=== PATIENT | female | born 1965 | race Caucasian/White ===

== ENCOUNTER 2016-07-22 08:48 | Inpatient (IN) | payer BC ==
[~2016-07-22] VITALS: Ht 157.5 cm; Wt 68.4 kg
[~2016-07-22 08:48] MED LIST: METO1TAB19 PO; OMEP20CA16 PO
[2016-07-22] MEDS ORDERED: SOD CHLORIDE 0.9% 1,000 ML IV STA ×2 (09:09→12:31)
[2016-07-22] MEDS ORDERED: ONDANSETRON 4 MG INJ IV STA ×3 (09:09→13:45)
[2016-07-22] MEDS ORDERED: morphine 4 MG/ML VIAL IV STA (09:09)
[2016-07-22] MEDS ORDERED: TOPI25CA7 PO (09:10)
[2016-07-22] MEDS ORDERED: METO-429 PO (09:10)
[2016-07-22] MEDS ORDERED: BUTA1CAP38 PO (09:11)
[2016-07-22 09:57] LABS: BASOPHIL # 0.1 10^3/ul (0.0-0.1); BASOPHILS % 0.7 % (0.0-2.0); EOSINOPHILS # 0.2 10^3/ul (0.0-0.5); EOSINOPHILS % 2.6 % (0.0-7.0); HEMATOCRIT 38.5 % (37.0-47.0); HEMOGLOBIN 12.9 g/dl (12.0-16.0); LYMPHOCYTES # 2.5 10^3/ul (0.8-2.9); MEAN CORPUSCULAR HEMOGLOBIN 29.3 pg (29.0-33.0); MEAN CORPUSCULAR HGB CONC 33.7 g/dl (32.0-37.0); MEAN CORPUSCULAR VOLUME 86.9 fl (82.0-101.0); MEAN PLATELET VOLUME 7.5 fl (7.4-10.4); MONOCYTE # 0.4 10^3/ul (0.3-0.9); MONOCYTES % 4.6 % (0.0-11.0); NEUTROPHIL # 4.7 10^3/ul (1.6-7.5); NEUTROPHILS % 60.1 % (39.0-77.0); PLATELET COUNT 287 10^3/UL (140-440); RED BLOOD COUNT 4.43 10^6/ul (4.20-5.40); RED CELL DISTRIBUTION WIDTH 13.9 % (11.5-14.5); UNCORRECTED WBC 7.8 10^3/ul (4.8-10.8); WHITE BLOOD COUNT 7.8 10^3/ul (4.8-10.8)
[2016-07-22 10:01] LABS: CONDITION 1
[2016-07-22 10:20] LABS: INR 0.93; PROTIME 12.5 Sec (12.2-14.2)
[2016-07-22 10:21] LABS: PARTIAL THROMBOPLASTIN TIME 26.4 Sec (25.0-35.0)
[2016-07-22 10:29] LABS: ALBUMIN 4.5 g/dl (3.3-4.9)
[2016-07-22 10:30] LABS: POTASSIUM 4.4 mmol/L (3.5-5.1)
[2016-07-22 10:31] LABS: CREATININE 0.7 mg/dl (0.44-1.00)
[2016-07-22 10:32] LABS: ALBUMIN/GLOBULIN RATIO 1.28; BILIRUBIN,INDIRECT 0.5 mg/dl (0-1.1); BILIRUBIN,TOTAL 0.5 mg/dl (0.2-1.3); CALCIUM 9.8 mg/dl (8.4-10.2)
[2016-07-22] MEDS ORDERED: SOD CHLORIDE 0.9% 100 ML ONE (10:55)
[2016-07-22] MEDS ORDERED: IOHEXOL 100 ML ONE (10:55)
[2016-07-22] MEDS ORDERED: HYDROmorphONE 1 MG/ML SYG IV STA (11:20)
--- NOTE | 2016-07-22 11:22 | RADRPT ---
PROCEDURE: CT brain without contrast CLINICAL INDICATION: Severe headaches TECHNIQUE: CT of the brain without contrast was performed on a multidetector CT scanner, with multi planar reformats. One or more of the following dose reduction techniques were used: Automated expos ure control, adjustment in mA and / or kV according to patient size, use of iterative reconstructive technique. CTDIvol = 44 mGy; DLP = 720 mGy-cm. COMPARISON: None available FINDINGS: No acute intracranial hemorrhage is identified. There is a focal area of prominence of the extra-axial space in the left middle cranial fossa arnoldo medially measuring up to approximately 3.3 cm, similar in density to CSF likely reflecting an arachn oid cyst. No significant mass effect or midline shift is identified Ventricles and sulci are within normal limits for size and configuration. The density of the brain is within normal limits. Post-white differentiation is preserved. Osseous structures are unremarkable. Mastoid air cells and imaged paranasal sinuses grossly clear. IMPRESSION: 1. No evidence of acute intracranial pathology. 2. Likely arachnoid cyst at the left middle cranial fossa. RPTAT: VV .Hussein Hernandez MD, MD Date Time Electronically viewed and signed by .Hussein Hernandez MD, on 07/22/2016 11:21 .O/
--- NOTE | 2016-07-22 11:31 | RADRPT ---
PROCEDURE: CT angiogram of the brain with contrast. CLINICAL INDICATION: severe headache TECHNIQUE: CT scan of the brain without and with contrast was performed on a multidetector high-re solution CT scan. The patient was scanned following the uncomplicated intravenous administration of 99 ml Omnipaque- 350. Coronal and sagittal reformatted images were obtained from the axial source i mages. Standard CT angiogram of the brain with contrast protocols were performed. The total exam CTDI equals 48.2 mGy and the total exam DLP equals 637.53 mGy-cm. One or more of the following dose reduction techniques were used: - Automated exposure control. - Adjustment of the mA and/or kV according to patient size. Use of iterative reconstruction technique. COMPARISON: CT scan of the head without contrast earlier same day. FINDINGS: The ventricular system and peripheral CSF spaces are unremarkable. No evidence of intracranial mass es hemorrhages or midline shift. The distal left vertebral artery is dominant at the distal vertebr al arteries otherwise unremarkable. The basilar artery is unremarkable. The right left and distal internal carotid arteries are unremarkable. The right left anterior, middle and posterior cerebral arteries are unremarkable. There is no hemodynamically significant stenosis, NASCET criteria. No e vidence of aneurysm dissection or thrombosis. The cortical cerebral arteries are unremarkable. 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 The remainder of the dural venous sinuses are unremarkable without evidence of thrombosis. New IMPRESSION: 1. No evidence of hemodynamically significant stenosis, NASCET criteria. 2. No evidence of aneurysm dissection or thrombosis. RPTAT:AAJJ Physician Joseph Date Time Electronically viewed and signed by Physician Joseph on 07/22/2016 11:31 BM/
[2016-07-22] MEDS ORDERED: KETOROLAC 30 MG INJ IV STA (11:49)
--- NOTE | 2016-07-22 12:02 | ERD ---
ER Documentation Chief Complaint Date/Time DATE: 07/22/16 TIME: 11:54 Chief Complaint COUGHING EPISODE THIS AM THEN SUDDEN ONSET SEVERE HEADACHE. NO NEURO DEF HPI This is a 50-year-old female with a known history of migraines that presents to the emergency department complaining of a sudden onset of a severe bandlike headache that occurred roughly an hour prior to arrival. The patient indicates the last time she had a headache like this was one year ago. She been placed on Fioricet and topiramate 25 mg which she took prior to arrival but indicated this did not improve her headache. She has been having difficulty sleeping over the past little while which has exacerbated her headaches in the past. She denies any neck pain. She has had no fevers or shaking or chills. She stated this is not the worst headache of her life. She denies any weakness of her upper or lower extremities. The patient stated she felt very nauseous but did not experience any hemoptysis hematemesis or melanotic stools. She did indicate that when the headache occurs she had developed a sudden nonproductive cough that resolved. Patient denies any night sweats or weight loss ROS All systems reviewed and are negative except as per history of present illness. Medications Home Meds Active Scripts Docusate Sodium* (Colace*) 100 Mg Capsule, 100 MG PO DAILY Y for CONSTIPATION, # 30 CAP Prov:GRIFFIN DANIELS 07/22/16 Hydrocodone/Acetaminophen ([place] 5-325 Tablet) 1 Each Tablet, 1 TAB PO Q6H Y for PAIN, #20 TAB Prov:GRIFFIN DANIELS 07/22/16 Naproxen* (Naprosyn*) 500 Mg Tablet, 500 MG PO BID Y for PAIN AND/OR INFLAMMATION, #30 TAB Prov:GRIFFIN DANIELS 07/22/16 Reported Medications Dxurzroacj-Juckwznfzhuil-Kfiealna* (Fioricet*) 50-300-40 Mg Capsule, 1 CAP PO Q6H Y for PAIN, CAP 07/22/16 Topiramate* (Trokendi XR*) 25 Mg Cap.er.24h, 25 MG PO DAILY, CAP 07/22/16 Metoprolol Tartrate* (Lopressor*) 50 Mg Tab, 50 MG PO BID, #60 TAB 07/22/16 Discontinued Reported Medications Omeprazole* (Omeprazole*) 20 Mg Capsule.dr, 20 MG PO DAILY, CAP 09/15/14 Metoprol/Hydrochlorothiazide (Lopressor HCT) 50-25 Mg Tab, 1 TAB PO DAILY, TAB 09/15/14 Allergies Allergies: Coded Allergies: Rizatriptan Benzoate (Verified Allergy, Mild, increased heart rate and numbiing of hand, 07/22/16) erythromycin base (Verified Allergy, Mild, increased heart rate and numbing of hand, 07/22/16) PMhx/Soc History of Surgery: Yes (HYSTERECTOMY 2005,LEFT EYE SURGERY, C SECTION X3) Anesthesia Reaction: No Hx Neurological Disorder: No Hx Respiratory Disorders: No Hx Cardiac Disorders: Yes (SINUS TACH) Hx Psychiatric Problems: No Hx Miscellaneous Medical Probl: No Hx Alcohol Use: Yes Hx Substance Use: No Hx Tobacco Use: No Smoking Status: Never smoker Physical Exam Vitals Vital Signs Date Time Temp Pulse Resp B/P Pulse Ox O2 Delivery O2 Flow Rate FiO2 07/22/16 11:26 96 18 126/88 98 Room Air 07/22/16 08:54 98.3 105 22 149/83 99 Physical Exam Constitutional:Well-developed. Well-nourished. Patient crying requesting the lights off due to photophobia appear to be in a significant amount discomfort secondary to pain HEENT:Normocephalic. Atraumatic.Pupils were equal round reactive to light. Moist mucous membranes.No tonsillar exudates. Endoscopy exam showed sharp optic disc bilaterally venous pulsations were present Neck: No nuchal rigidity. No lymphadenopathy. No posterior cervical spine tenderness or step-offs. Respiratory: Not using accessory muscles of respiration.Lungs were clear to auscultation bilaterally. No rhonchi. No rales. No wheezing. Cardiovascular: Regular rate regular rhythm.No murmurs. No rubs were appreciated.S1, S2 normal. Distal pulses are palpable 2+ bilaterally. GI: Abdomen was soft. Nontender. Non Distended. No pulsatile abdominal masses or bruits. No rebound. No guarding. Bowel sounds were present and normal. Muscle skeletal: Full range of motion of both the upper and lower extremities bilaterally.Normal muscle tone.No assymetrical calf tenderness or swelling. Skin: No petechia, no purpura. No lesions on the palms or the soles of the feet. No maculopapular rash. NEURO: Patient was alert, awake, orientated x3.No facial droop. Gait observed and normal with no ataxia.Speech had regular rate and rhythm. No focal neurological deficits. Result Diagram: 07/22/1620 07/22/16 0930 Results 24 hrs Laboratory Tests Test 07/22/16 09:20 07/22/16 09:30 Basophils # 0.110^3/ul Basophils % 0.7% Eosinophils # 0.210^3/ul Eosinophils % 2.6% Hematocrit 38.5% Hemoglobin 12.9g/dl Lymphocytes # 2.510^3/ul Lymphocytes % 32.0% Mean Corpuscular Hemoglobin 29.3pg Mean Corpuscular Hemoglobin Concent 33.7g/dl Mean Corpuscular Volume 86.9fl Mean Platelet Volume 7.5fl Monocytes # 0.410^3/ul Monocytes % 4.6% Neutrophils # 4.710^3/ul Neutrophils % 60.1% Nucleated Red Blood Cells # 0.010^3/ul Nucleated Red Blood Cells % 0.0/100WBC Platelet Count 49594^3/UL Red Blood Count 4.4310^6/ul Red Cell Distribution Width 13.9% White Blood Count 7.810^3/ul Activated Partial Thromboplast Time 26.4Sec Alanine Aminotransferase (ALT/SGPT) 41IU/L Albumin 4.5g/dl Albumin/Globulin Ratio 1.28 Alkaline Phosphatase 98IU/L Anion Gap 19 Aspartate Amino Transf (AST/SGOT) 36IU/L Blood Urea Nitrogen 13mg/dl Calcium Level 9.8mg/dl Carbon Dioxide Level 26mmol/L Chloride Level 102mmol/L Creatinine 0.70mg/dl Direct Bilirubin 0.00mg/dl Globulin 3.50g/dl Glucose Level 147mg/dl INR International Normalized Ratio 0.93 Indirect Bilirubin 0.5mg/dl Potassium Level 4.4mmol/L Prothrombin Time 12.5Sec Prothrombin Time Ratio 1.0 Sodium Level 143mmol/L Total Bilirubin 0.5mg/dl Total Protein 8.0g/dl Current Medications Medications (Trade) Dose Ordered Sig/Christine Route PRN Reason Start Time Stop Time Status Last Admin Dose Admin Sodium Chloride (NS) 1,000 ml @ 1,000 mls/hr Q1H STAT IV 07/22/16 09:09 07/22/16 10:08 DC 07/22/16 09:33 Morphine Sulfate (morphine) 4 mg ONCE STAT IV 07/22/16 09:09 07/22/16 09:11 DC 07/22/16 09:33 Ondansetron HCl (Zofran Inj) 4 mg ONCE STAT IV 07/22/16 09:09 07/22/16 09:11 DC 07/22/16 09:33 IV Flush 10 ml 10 ml STK-MED ONCE .ROUTE 07/22/16 10:55 07/22/16 10:56 DC 07/22/16 11:16 Sodium Chloride 100 ml @ ud STK-MED ONCE .ROUTE 07/22/16 10:55 07/22/16 10:56 DC 07/22/16 11:16 Iohexol (Omnipaque) 100 ml @ ud STK-MED ONCE .ROUTE 07/22/16 10:55 07/22/16 10:56 DC 07/22/16 11:17 Hydromorphone HCl (Dilaudid) 1 mg ONCE STAT IV 07/22/16 11:20 07/22/16 11:21 DC 07/22/16 11:30 Ondansetron HCl (Zofran Inj) 4 mg ONCE STAT IV 07/22/16 11:20 07/22/16 11:21 DC 07/22/16 11:29 Ketorolac Tromethamine 30 mg 30 mg ONCE STAT IV 07/22/16 11:49 07/22/16 11:51 DC 07/22/16 12:47 Sodium Chloride (NS) 1,000 ml @ 1,000 mls/hr Q1H STAT IV 07/22/16 12:31 07/22/16 13:30 DC 07/22/16 12:46 Procedures/MDM The patient presented to the emergency department with an acute single headache that presented within hours of onset my differential diagnosis included but was not limited to meningitis, SAH, intracerebral hemorrhage, hypertensive encephalopathy, cranial artery dissection, cerebral venous sinus thrombosis, traumatic, acute sinusitis. The patient has no ocular symptoms to suggest temporal neuritis, acute narrow-angle glaucoma or pituitary apoplexy. The patient did not appear to have a toxic or metabolic etiology such as fever, hypoglycemia, high-altitude disease or carbon monoxide poisoning. This was not the patients worse headache of their life. The patient had a complete neurologic and fundoscopic exam performed by myself that was normal with no focal neurological deficits or retinal hemorrhage. The patient stated this headache was not severe or distinct from other headaches and the history with the physical exam findings did not likely suggest SAH. Therefore, I did not feel it was clinically necessary to perform a lumbar puncture and CSF analysis. I did obtain a CT scan of the patient's head and CT angiogram which showed no evidence of subarachnoid hemorrhage, mass-effect or cerebral aneurysm. Observation Note: Time: 5 hours Family Hx: No Hypertension Evaluation: Multiple exams showed improving symptoms and no evidence of focal neurological deficits and her headache had improved. There is no electrolyte abnormalities. The patient received IV Toradol Dilaudid and morphine during her observation stay with complete resolution of her headache. At 1:48 PM just as the patient was being discharged in the IV have been removed the patient started states that the headache had returned. She became very tearful and states she did not feel comfortable being discharged home. Therefore at this time IV was reestablished by nursing staff. She was given a liter bolus of 0.9 normal saline, IV Ativan and Zofran. The patient will be admitted to the hospitalist in serious condition for observation Departure Diagnosis: Primary Impression: Migraine headache Migraine type: without aura Status migrainosus presence: without status migrainosus Intractability: intractable Qualified Code: G43.019 - Intractable migraine without aura and without status migrainosus Condition: Serious GRIFFIN DANIELS Jul 22, 2016 12:02
[2016-07-22] MEDS ORDERED: NAPR-260 PO (12:13)
[2016-07-22] MEDS ORDERED: HYDR-906 PO (12:13)
[2016-07-22] MEDS ORDERED: DOCU-144 PO (12:13)
[2016-07-22] MEDS ORDERED: LORAZEPAM 2 MG INJ IV ONE (14:00)
[2016-07-22] MEDS ORDERED: ACETAMINOPHEN 325 MG TAB PO PRN ×2 (14:30→15:30)
[2016-07-22] MEDS ORDERED: ONDANSETRON 4 MG INJ IV PRN ×2 (14:30→15:30)
[2016-07-22] MEDS ORDERED: MAGNESIUM HYDROXIDE 30ML CUP PO PRN (15:30)
[2016-07-22] MEDS ORDERED: HYDROCODONE/APAP (5/325) TAB PO PRN (15:30)
[2016-07-22] MEDS ORDERED: BISACODYL (EC) 5 MG TAB PO PRN (15:30)
[2016-07-22] MEDS ORDERED: DOCUSATE SODIUM 100 MG CAP PO PRN (15:30)
[2016-07-22] MEDS ORDERED: NACL 0.9% 3 ML SYG IV SCH (15:30)
[2016-07-22 19:00] VITALS: TEMP 98.3
[2016-07-22] MEDS: HYDROmorphONE 1 MG/ML SYG IV PRN ×2 (19:18→22:59)
--- NOTE | 2016-07-22 19:53 | HP ---
DATE OF ADMISSION: 07/22/2016 TIME OF EVALUATION: 1500 hours. REASON FOR ADMISSION: Headache. CONSULTATION: Dr. Siomara Morrell, Neurologist. HISTORY OF PRESENT ILLNESS: This is a 50-year-old male with past medical history of migraine headache, essential hypertension and sinus tachycardia, who came to the emergency room with chief complaint of sudden onset of severe band-like headache that happened at around 7:35 a.m. on 2016. The patient verbalized that she has been having frequent attacks of migraine headaches recently. The patient also verbalized that she was having a flu last week. The patient verbalized that she was having flu-like symptoms since 07/18/2016. The patient was taking [id number] medications with improvement in the patient's symptoms. The patient denied any photophobia. The patient denied any speech disturbances. The patient denied any focal weakness. The patient denied any fevers, shaking or chills. The patient was seen in the emergency room. The initial plan was to discharge the patient home. Nevertheless, the patient started having severe headache that was intolerable. The patient verbalized that she has been trying to see a neurologist as outpatient, however, because of insurance reasons, she was unable to see a neurologist. The patient also had a right breast lump that the patient is aware of. As per the patient, she was told to follow up as outpatient, however, as per the patient, she has not had any followup regarding this. In the emergency room, the patient underwent a brain CT scan that was negative for any acute intracranial pathology. The patient also underwent a head CTA that showed no evidence of any hemodynamically significant stenosis of the major arteries. The patient was treated with IV analgesics and IV fluids along with IV antiemetics in the emergency room. PAST MEDICAL HISTORY: Migraine headache, essential hypertension, sinus tachycardia, right breast lump. PAST SURGICAL HISTORY: Hysterectomy, left eye surgery, x3. HOME MEDICATIONS: 1. Lopressor 50 mg p.o. b.i.d. 2. Fioricet 1 capsule p.o. q.6h. p.r.n. headache. 3. [place] 5/325 one tablet p.o. q.6h. p.r.n. pain. 4. Naproxen 500 mg p.o. b.i.d. p.r.n. pain. 5. Topiramate 25 mg p.o. daily. 6. Colace 100 mg p.o. daily p.r.n. constipation. ALLERGIES: ERYTHROMYCIN, RIZATRIPTAN. SOCIAL HISTORY: The patient lives at home with her family. 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 Denies any use of tobacco, alcohol or illicit drugs. REVIEW OF SYSTEMS: A 14-point review of systems were made and the review of systems were negative other than what is mentioned in history of present illness. PHYSICAL EXAMINATION: VITAL SIGNS: Temperature 98.3, pulse rate 89, respiratory rate 18, blood pressure 115/67, oxygen saturation 100% on room air. GENERAL: Well-built, well-nourished female lying in bed in no apparent distress. HEENT: Head normocephalic and atraumatic. Eyes: Anicteric sclerae. Conjunctivae clear. ENT: Nasal septum is midline. Oral mucosa is dry. NECK: Supple. No JVD noticed. RESPIRATORY: Bilaterally clear to auscultation. No adventitious breath sounds heard. No use of accessory muscles of respiration. CARDIOVASCULAR: Regular rate and rhythm. Sinus tachycardia. No obvious murmurs heard. ABDOMEN: Abdomen soft, nontender and nondistended. Bowel sounds positive in all 4 quadrants. GENITOURINARY: Deferred. EXTREMITIES: No cyanosis, no clubbing, no edema. Peripheral pulses palpable. NEUROLOGIC: The patient is awake, alert and oriented. Cranial nerves are grossly intact. LABORATORY AND DIAGNOSTIC DATA: WBC 7.8, hemoglobin 12.9, hematocrit 30.5, platelet count 287. Sodium 142, potassium 4.4, chloride 100, carbon dioxide 26 , anion gap 19, BUN 13, creatinine 0.70, glucose 147, calcium 9.8, total bilirubin 0.5, AST 36, ALT 40, PT 12.5, INR 0.93, PTT 26.43. Brain CT: No acute intracranial pathology. Head CTA: No evidence of hemodynamically significant stenosis. IMPRESSION: This history a 50-year-old female with past medical history of essential hypertension and migraine headache, who came to the emergency room with intractable headache, not well controlled with medical therapy in the ER. She will be admitted here for further treatment and evaluation. ASSESSMENT AND PLAN: 1. Headache, most probably secondary to underlying migraine. The patient will be maintained on p.r.n. analgesics. The patient's topiramate will be resumed. THE PATIENT IS ALLERGIC TO ANY TRIPTANS. Antihypertensives will be ordered on this patient. Neurology consult will be obtained. 2. Essential hypertension. The patient's home antihypertensives will be resumed. The patient will also be started on p.r.n. antihypertensives for any systolic blood pressure readings greater than 160 mmHg. 3. Sinus tachycardia. The patient is on beta blockers. The patient follows up with Dr. Sosa for the same. 4. Right breast lump. As mentioned in HPI, the patient has not followed up regarding this. Will obtain a bilateral breast ultrasound to further evaluate this. Plan. The patient will be admitted to inpatient setting. The patient will be started on a regular diet. The patient will be a full code. She will be started on DVT prophylaxis and gastrointestinal prophylaxis. The rest of the patient's management will be based on the clinical course, the results of diagnostic studies, and inputs from consultants. Based on the patient's clinical presentation, she most probably requires at least 1 midnight's stay for further management and evaluation of her clinical presentation. The case and management of this patient was fully discussed with Dr. Jacobs. Approximately 50 minutes was spent on the history and physical on this patient. COLLEEN JACOBS MD AM/DIANA Conf#: [id number] DID#: [id number] CC: SIOMARA MORRELL MD;*EndCC* MTDD
[2016-07-22 21:11] VITALS: BP 136/83; RESP 16
[2016-07-22 22:02] VITALS: Ht 157.5 cm; Wt 68.4 kg
[2016-07-22] MEDS: METOPROLOL 50 MG TAB PO SCH (22:14)
[2016-07-22] MEDS: FAMOTIDINE 20 MG TAB PO SCH (22:14)
[2016-07-22] MEDS: ACET/BUTAL/CAFF TAB PO PRN (23:17)
[2016-07-23 06:18] LABS: BASOPHILS % 0.5 % (0.0-2.0); EOSINOPHILS # 0.2 10^3/ul (0.0-0.5); EOSINOPHILS % 2.4 % (0.0-7.0); HEMATOCRIT 33.6 % (37.0-47.0); HEMOGLOBIN 11.2 g/dl (12.0-16.0); LYMPHOCYTES # 3.9 10^3/ul (0.8-2.9); LYMPHOCYTES % 40.3 % (15.0-51.0); MEAN CORPUSCULAR HEMOGLOBIN 29.6 pg (29.0-33.0); MEAN CORPUSCULAR HGB CONC 33.4 g/dl (32.0-37.0); MEAN CORPUSCULAR VOLUME 88.6 fl (82.0-101.0); MEAN PLATELET VOLUME 7.2 fl (7.4-10.4); MONOCYTE # 0.6 10^3/ul (0.3-0.9); NEUTROPHIL # 4.9 10^3/ul (1.6-7.5); NEUTROPHILS % 50.8 % (39.0-77.0); PLATELET COUNT 263 10^3/UL (140-440); RED BLOOD COUNT 3.79 10^6/ul (4.20-5.40); RED CELL DISTRIBUTION WIDTH 14.1 % (11.5-14.5); UNCORRECTED WBC 9.7 10^3/ul (4.8-10.8); WHITE BLOOD COUNT 9.7 10^3/ul (4.8-10.8)
[2016-07-23 06:20] LABS: CONDITION 1
[2016-07-23 06:48] LABS: CHOL/HDL RATIO 4.6 RATIO; MAGNESIUM 2.2 mg/dl (1.7-2.5); PHOSPHORUS 3.5 mg/dl (2.5-4.9)
[2016-07-23 06:49] LABS: ALBUMIN 3.7 g/dl (3.3-4.9)
[2016-07-23 06:52] LABS: ALBUMIN/GLOBULIN RATIO 1.19; BILIRUBIN,INDIRECT 0.3 mg/dl (0-1.1); BILIRUBIN,TOTAL 0.3 mg/dl (0.2-1.3); CREATININE 0.82 mg/dl (0.44-1.00); TOTAL PROTEIN 6.8 g/dl (6.1-8.1)
[2016-07-23 06:53] LABS: CALCIUM 9.3 mg/dl (8.4-10.2)
[2016-07-23 07:18] LABS: THYROID STIMULATING HORMONE 0.666 MIU/L (0.465-4.680)
[2016-07-23 08:00] VITALS: BP 110/71; PULSE 90; RESP 18
[2016-07-23] MEDS: FAMOTIDINE 20 MG TAB PO SCH (08:22)
[2016-07-23] MEDS: ACET/BUTAL/CAFF TAB PO PRN (08:22)
[2016-07-23] MEDS: METOPROLOL 50 MG TAB PO SCH (08:23)
[2016-07-23] MEDS ORDERED: ENOXAPARIN 40 MG/0.4 ML SYG SC SCH (09:00)
[2016-07-23] MEDS ORDERED: TOPIRAMATE 25 MG PO SCH (09:00)
[2016-07-23] MEDS ORDERED: [UNRECOGNIZED DRUG - OTHER] XX SCH (10:30)
--- NOTE | 2016-07-23 11:08 | CONS ---
Date/Time of Note Date/Time of Note DATE: 07/23/16 TIME: 11:01 Assessment/Plan Assessment/Plan Chief Complaint/Hosp Course 50 year old female with history of migraine headaches over 15 years recently initiated on Topamax low dose 25 mg qhs, with flu-like illness for past few days , stopped taking Topamax and Fioricet, suspect rebound headaches. -reinitiate Topamax, increase dose to 50 mg qhs if tolerating well with no side effects can increase in one week to 75 mg qhs -advised to take Fioricet prn only when headaches are severe as withdrawal can cause rebound headaches -zofran prn, may discharge with prn sublingual Zofran 4 mg q6h prn for nausea -outpatient neurology follow up advised, given information to contact Dr. Rubin 's office to schedule an outpatient visit Problems: Consultation Date/Type/Reason Admit Date/Time Jul 22, 2016 at 14:27 Date of Consultation: Jul 23, 2016 Type of Consultation: Neurology Reason for Consultation migraine headaches Referring Provider: COLLEEN COLON NP Hx of Present Illness 50 year old female with history of migraine headaches for the past 15 years, essential hypertension, recent flu illness presenting with severe headaches described as band-like sensation. She is currently managed on Topamax 25 mg qhs and Fioricet q6h, has never been evaluated by a neurologist as outpatient for management of her headaches. She was recently started on Topamax 3 weeks ago by primary care physician, no reported side effects and was also taking Fioricet daily for management of headcahes. Three days ago she developed flu-like symptoms and stopped taking both of her medications. In the ER she received, morphine which dulled the pain and dilaudid with improved her symptoms and made her feel very lethargic. At this time she denies any active pain, feeling at her baseline. No photophobia, phonophobia, neck stiffness described, no fevers. Head CT done in ER, no acute intracranial abnormalities, left middle cranial fossa arachnoid cyst. negative ROS Past Medical History hypertension migraine headaches Social History Smoking Status: Never smoker Exam/Review of Systems Vital Signs Vitals Vital Signs Date Time Temp Pulse Resp B/P Pulse Ox O2 Delivery O2 Flow Rate FiO2 07/23/16 08:00 99.0 90 18 110/71 98 07/22/16 20:32 Room Air Intake and Output 07/22/16 07/22/16 07/23/16 15:00 23:00 07:00 Intake Total 720 ml Balance 720 ml Exam Constitutional: alert, oriented, well developed Psych: nl mood/affect, no complaints Head: atraumatic, normocephalic Eyes: EOMI, nl conjunctiva Neurological: DOPE SPRAYER II-XII intact, DTR's symmetric, nl mental status, nl speech, nl strength Results Result Diagram: 07/23/16 0600 07/23/16 0600 Results 24 hrs Laboratory Tests Test 07/23/16 06:00 Alanine Aminotransferase (ALT/SGPT) 39 Albumin 3.7 Albumin/Globulin Ratio 1.19 Alkaline Phosphatase 74 Anion Gap 14 Aspartate Amino Transf (AST/SGOT) 27 Basophils # 0.0 Basophils % 0.5 Blood Morphology Comment Blood Urea Nitrogen 12 Calcium Level 9.3 Carbon Dioxide Level 27 Chloride Level 107 Cholesterol Level 161 Cholesterol/HDL Ratio 4.6 Creatinine 0.82 Direct Bilirubin 0.00 Eosinophils # 0.2 Eosinophils % 2.4 Erythrocyte Sedimentation Rate 15 Free Thyroxine 0.98 Globulin 3.10 Glucose Level 105 # HDL Cholesterol 35 L Hematocrit 33.6 L Hemoglobin 11.2 L Hemoglobin A1c 6.8 H Indirect Bilirubin 0.3 LDL Cholesterol, Calculated 97 Lymphocytes # 3.9 H Lymphocytes % 40.3 Magnesium Level 2.2 Mean Corpuscular Hemoglobin 29.6 Mean Corpuscular Hemoglobin Concent 33.4 Mean Corpuscular Volume 88.6 Mean Platelet Volume 7.2 L Monocytes # 0.6 Monocytes % 6.0 Neutrophils # 4.9 Neutrophils % 50.8 Nucleated Red Blood Cells # 0.0 Nucleated Red Blood Cells % 0.0 Phosphorus Level 3.5 Platelet Count 263 Potassium Level 4.0 Red Blood Count 3.79 L Red Cell Distribution Width 14.1 Sodium Level 144 Thyroid Stimulating Hormone (TSH) 0.666 Total Bilirubin 0.3 Total Protein 6.8 # Triglycerides Level 147 White Blood Count 9.7 # Medications Medications Current Medications Ondansetron HCl (Zofran Inj) 4 mg Q6H PRN IV NAUSEA AND/OR VOMITING Last administered on 07/22/16t 21:33; Admin Dose 4 MG; Start 07/22/16 at 15:30 Acetaminophen (Tylenol Tab) 650 mg Q6H PRN PO PAIN LEVEL 1-3 OR FEVER; Start at 15:30 Acetaminophen/ Hydrocodone Bitart (Sisters (5/325)) 1 tab Q6H PRN PO MODERATE PAIN LEVEL 4-6; Start 07/22/16 at 15:30 Hydromorphone HCl (Dilaudid) 0.5 mg Q4H PRN IV SEVERE PAIN LEVEL 7-10 Last administered on 07/22/16 22:59; Admin Dose 0.5 MG; Start 07/22/16 at 15:30 Magnesium Hydroxide (Milk Of Mag) 30 ml DAILY PRN PO CONSTIPATION; Start at 15:30 Bisacodyl (Dulcolax) 5 mg DAILY PRN PO CONSTIPATION Last administered on 23:17; Admin Dose 5 MG; Start 07/22/16 at 15:30 Famotidine (Pepcid) 20 mg Q12 PO Last administered on 07/23/16 08:22; Admin Dose 20 MG; Start 07/22/16 at 21:00 Enoxaparin Sodium (Lovenox) 40 mg DAILY SC Last administered on 07/23/16 08:26 ; Admin Dose 40 MG; Start 07/23/16 at 09:00 Acetaminophen/ Butalbital/ Caffeine (Fioricet) 1 tab Q6H PRN PO PAIN Last administered on 07/23/16 08:22; Admin Dose 1 TAB; Start 07/22/16 at 15:30 Docusate Sodium (Colace) 100 mg DAILY PRN PO CONSTIPATION; Start 07/22/16 at 15 :30 Metoprolol Tartrate (Lopressor) 50 mg BID PO Last administered on 07/23/16 08: 23; Admin Dose 50 MG; Start 07/22/16 at 21:00 Miscellaneous Information 25 mg DAILY PO ; Start 07/23/16 at 09:00; Status UNV Miscellaneous Information (*Order Clarification Bulletin) Topiramate* (Trokendi XR*) 25 MG, ... Q8H XX ; Start 07/23/16 at 10:30 DANNY MORRELL MD Jul 23, 2016 11:08
--- NOTE | 2016-07-23 12:50 | PDOCDIS ---
Discharge Instructions DIAGNOSIS Discharge Diagnosis: Migraine. Type II DM [newly diagnosed] CONDITION Patient Condition: Stable HOME CARE INSTRUCTIONS: Special Diet: Carbohydrate controlled FOLLOW UP/APPOINTMENTS Appointments Kevin Rivas MD Specialty: Internal Medicine Office Address: [address] [place], [place] [id number] Office OTHER ORDERS: Other Orders: 1. Take a carbohydrate controlled diet. 2. Take medications as per prescription. 3. Follow-up with your primary care physician in 2 weeks. If you do not have a primary care physician, please call Dr. Kevin Rivas's office. 4. Resume activities as tolerated. COLLEEN COLON NP Jul 23, 2016 12:50
[2016-07-23] MEDS ORDERED: TOPI25CA2 PO (13:02)
[2016-07-23] MEDS ORDERED: METF500T4 PO (13:02)
--- NOTE | 2016-07-23 13:07 | RADRPT ---
PROCEDURE: Bilateral breast ultrasound. CLINICAL INDICATION: Right breast lumps TECHNIQUE: Bilateral whole breast, 4 quadrant and retroareolar, and axillary sonography was perfor med. COMPARISON: None FINDINGS: No solid or suspicious masses. No areas of architectural distortion. No malignant adenopathy. No dominant cysts are present. IMPRESSION: No sonographic findings of malignancy in the region of the palpable area of concern in the right erin ast . Recommend additional imaging evaluation with a bilateral diagnostic mammogram BI-RADS 0: INCOMPLETE, NEED ADDITIONAL IMAGING EVALUATION RPTAT: EE .Cehy Chatman MD, MD Date Time Electronically viewed and signed by .Chey Chatman MD, MD on 07/23/2016 13:07 .Abdias/
--- NOTE | 2016-07-23 15:41 | DS ---
DATE OF ADMISSION: 07/22/2016 DATE OF DISCHARGE: 07/23/2016 FINAL DIAGNOSES: 1. Migraine headache. 2. Essential hypertension. 3. Sinus tachycardia. 4. History of right breast lump. Ultrasound negative for any suspicious masses. 5. Type 2 diabetes mellitus. Newly diagnosed versus new onset. CONSULTANTS: Siomara Deleon MD, neurology. HOSPITAL COURSE: This is a 50-year-old female with past medical history of migraine headache, essential hypertension, and sinus tachycardia who came to the emergency room with chief complaint of sudden onset of severe band- like headache that happened at around 7:35 a.m. on 07/22/2016. The patient verbalized that she has been having frequent attacks of migraine headaches recently. The patient also verbalized that she was having a flu last week. The patient verbalized that she was having flu-like symptoms since 07/18/2016. The patient was taking eeat-tlu-lvyuavr medications with improvement in the patient's symptoms. The patient denied any photophobia. The patient denied any sleep disturbances. The patient denied any focal weakness. She denied any fevers, shaking or chills. The patient was seen in the emergency room. The initial plan was to discharge the patient home. The patient had severe headache that was intolerable. Provided the patient's history of present illness, her comorbidities and the diagnostic findings, a clinical decision was made to admit the patient to inpatient setting to have her further evaluated. The patient was admitted to inpatient medical/surgical floor. The patient was started on adequate pain control. A neurology consult was obtained. The patient's headache resolved over the course of her hospital stay. Neurology saw and evaluated the patient. Neurology increased the dose of her Topamax. The patient's brain imaging has been negative. The patient reported a right breast lump a few years ago. At that time, the patient was told to follow up. However, the patient never followed up regarding this. The patient underwent bilateral breast ultrasound that was negative for any suspicious lesions. The patient has underlying essential hypertension. The patient was maintained on antihypertensives for the same. The patient also has sinus tachycardia and the patient follows up with Dr. Sosa as an outpatient for the same. The patient' s heart rate remained stable. The patient was incidentally noted to have a hemoglobin A1c of 6.8. The patient's random blood glucose was not very bad. Hence, the patient was diagnosed with type 2 diabetes mellitus, newly diagnosed versus new onset. Therefore, the patient will be started on metformin upon discharge, to be followed up with outpatient primary care physician. The patient had a stable hospital course. The patient was cleared by neurology to be discharged home. The patient denied any complaints at the time of discharge. DISCHARGE DISPOSITION/PLAN: The patient will be discharged home today. The patient was instructed to take a carbohydrate controlled diet. She was instructed to take medications as per prescriptions. The patient was instructed to follow up with her primary care physician in 2 weeks and if she does not have a primary care physician, to please call Dr. Kevin Rivas's office. The patient was instructed to resume activities as tolerated. The patient verbalized understanding of her discharge instructions. CONDITION AT DISCHARGE: Stable. DISCHARGE MEDICATIONS 1. Metformin 500 mg p.o. with breakfast and dinner. 2. Topiramate 50 mg p.o. daily. 3. Colace 100 mg p.o. daily p.r.n. constipation. 4. [place] 5/325 one tablet p.o. q.6h. p.r.n. pain. 5. Lopressor 50 mg p.o. b.i.d. PERTINENT LABORATORY AND DIAGNOSTIC DATA: 1. Brain CT scan. No evidence of acute intracranial pathology. Likely arachnoid cyst at the left middle cranial fossa. 2. Head CTA. No evidence of hemodynamically significant stenosis. No evidence of aneurysm, dissection or thrombosis. 3. Bilateral breast ultrasound. No sonographic findings of malignancy in the region of the palpable area of concern in the right breast. No suspicious or solid masses. 4. Latest CBC: WBC 9.7, hemoglobin 11.2, hematocrit 33.6, platelet count 263. 5. Latest BMP: Sodium 144, potassium 4.0, chloride 107, carbon dioxide 27, anion gap 14, creatinine 0.8, glucose 105, calcium 9.3. Phosphorus 3.7, magnesium 2.3. 6. Hemoglobin A1c 6.8. 7. Fasting lipid panel: Triglycerides 147, total cholesterol 161, LDL 97, HDL 35. 8. Thyroid panel: TSH 0.666, free T4 of 0.98. At this time, we would like to thank Dr. Deleon for seeing the patient and providing clinical recommendations. The case and management of this patient was fully discussed with Dr. Jacobs. Approximately 35 minutes was spent on coordinating the discharge on this patient. COLLEEN JACOBS MD, AM/DIANA Conf#: [id number] DID#: [id number] MTDD
[2016-07-24] MEDS ORDERED: TOPIRAMATE 50 MG PO SCH (09:00)
[2016-07-24] MEDS ORDERED: TOPIRAMATE SPRINKLE 25 MG CAP PO SCH (12:00)
== END 2016-07-23 14:30 | disposition home or self-care (01) | DRG 103 ==
LOC: E/R 08:48 → MS2 14:27
PROVIDERS: ADMIT Family Medicine; ATTEND Family Medicine
DX: G43.909 Migraine, unspecified, not intractable, without status migrainosus (principal); I10 Essential (primary) hypertension; R00.0 Tachycardia, unspecified; N63 Unspecified lump in breast; E11.9 Type 2 diabetes mellitus without complications
CPT/HCPCS: 70450; 70496; 80053; 80061; 83036; 83735; 84100; 84439; 84443; 85025; 85610; 85651; 85730; 96374; 96375; 96376; J1170; J1650; J1885; J2060; J2270; J2405; J7030; Q9967

== ENCOUNTER 2017-03-31 16:10 | Emergency (ER) | payer BC ==
[~2017-03-31] VITALS: Ht 157.5 cm; Wt 67.5 kg
[~2017-03-31 16:10] MED LIST changes: +DOCU-144 PO; +HYDR-906 PO; +METF500T4 PO; +METO-429 PO; -METO1TAB19 PO; -OMEP20CA16 PO; +TOPI25CA2 PO
[2017-03-31 16:18] VITALS: Ht 157.5 cm; Wt 67.5 kg
[2017-03-31] MEDS ORDERED: ASPIRIN 325 MG TAB PO STA (18:12)
[2017-03-31] MEDS ORDERED: SOD CHLORIDE 0.9% 1,000 ML IV ONE (18:30)
[2017-03-31] MEDS ORDERED: LORAZEPAM 0.5 MG TAB PO ONE (18:30)
--- NOTE | 2017-03-31 18:50 | RADRPT ---
PROCEDURE: CT head without intravenous contrast CLINICAL INDICATION: Left arm heaviness. COMPARISON: None relevant listed. TECHNIQUE: Axial CT images from skull base to vertex with coronal and sagittal reformats. DOSE: The estimated administered radiation dose was CTDI vol = 40 mGy. DLP = 768 mGy-cm. One or mor e of the following dose reduction techniques were used: automated exposure control, adjustment of th e mA and/or kV according to patient size, or use of iterative reconstruction. FINDINGS: Parenchyma: No acute hemorrhage, large territorial infarction, or mass. Ventricles: No ventriculomegaly or ventricular effacement. Extra-axial spaces: No herniation or midline shift. Paranasal sinuses: Clear. Mastoids and middle ears: Clear. Visualized orbits: Normal. Vessels: No calcified atherosclerotic arterial plaque identified. Bones: Normal. Extracranial soft tissues: Normal. Additional comment: None. IMPRESSION: No acute hemorrhage or large territorial infarction. If there is high clinical suspicion for acute i nfarction, MRI is recommended for further evaluation because it is a more sensitive examination. RPTAT: PP Physician John Date Time Electronically viewed and signed by Physician John on 03/31/2017 18:50 LG/
--- NOTE | 2017-03-31 19:31 | RADRPT ---
PROCEDURE: XR Chest. CLINICAL INDICATION: Chest pain. TECHNIQUE: Single frontal view. COMPARISON: 02/26/2016. FINDINGS: The lungs are clear. The heart size is normal. There is no pleural effusion. There is no pneumothorax. IMPRESSION: 1. Normal chest radiograph. 2. No change from 02/26/2016. RPTAT: QQ .Jerrell Morris MD, MD Date Time Electronically viewed and signed by .Jerrell Morris MD, MD on 03/31/2017 19:31 .R/
[2017-03-31] MEDS ORDERED: ASPI-664 PO (20:59)
--- NOTE | 2017-04-01 00:08 | ERD ---
ER Documentation Chief Complaint Chief Complaint left arm tingling since 814 this morning HPI 51-year-old female patient with a past medical history of hypertension, diabetes type 2, migraines, tachycardia presents to the ED complaining of a constant left arm heaviness, arm tightness and arm pain that started this morning at 8am when she was upset. Reports that she was driving in [place] and her father was trying to get out of the car and she felt like this may have caused her symptoms. She states that she called her primary care physician, Dr. Hanks who sent her here for further evaluation and treatment. Reports that she feels numbness and tingling of her left upper extremity from her hand to her elbow. Denies any chest pain, shortness of breath, nausea, vomiting, diarrhea, wheezing , fever, chills, seizures, weakness, slurred speech. ROS All systems reviewed and are negative except as per history of present illness. Medications Home Meds Active Scripts Aspirin* (Aspirin* EC) 81 Mg Tablet., 162 MG PO DAILY, #30 TAB Prov:RYAN DESIR PA-C 03/31/17 Metformin* (Glucophage*) 500 Mg Tab, 500 MG PO WITH BREAKFAST DINNE, #60 TAB Prov:COLLEEN COLON [employer] 07/23/16 Topiramate* (Topiramate*) 25 Mg Cap.sprink, 50 MG PO DAILY for 30 Days, CAP Prov:COLLEEN COLON [employer] 07/23/16 Docusate Sodium* (Colace*) 100 Mg Capsule, 100 MG PO DAILY Y for CONSTIPATION, # 30 CAP Prov:GRIFFIN DANIELS 07/22/16 Hydrocodone/Acetaminophen ([place] 5-325 Tablet) 1 Each Tablet, 1 TAB PO Q6H Y for PAIN, #20 TAB Prov:GRIFFIN DANIELS 07/22/16 Reported Medications Metoprolol Tartrate* (Lopressor*) 50 Mg Tab, 50 MG PO BID, #60 TAB 07/22/16 Allergies Allergies: Coded Allergies: Rizatriptan Benzoate (Verified Allergy, Mild, increased heart rate and numbiing of hand, 07/22/16) erythromycin base (Verified Allergy, Mild, increased heart rate and numbing of hand, 07/22/16) PMhx/Soc History of Surgery: Yes Anesthesia Reaction: No Hx Neurological Disorder: Yes (HEADACHES/MIGRAINE) Hx Respiratory Disorders: No Hx Cardiac Disorders: Yes (HTN) Hx Psychiatric Problems: No Hx Miscellaneous Medical Probl: No Hx Alcohol Use: No Hx Substance Use: No Hx Tobacco Use: No Smoking Status: Never smoker Physical Exam Vitals Vital Signs Date Time Temp Pulse Resp B/P Pulse Ox O2 Delivery O2 Flow Rate FiO2 03/31/17 16:18 97.6 87 16 126/81 100 Physical Exam Const: Ltc-bnc-fawycydyq, well-nourished. In no acute distress. Head: Atraumatic, normocephalic Eyes: Normal Conjunctiva without injection. No purulent discharge. PERRLA. EOMI ENT: Normal external ear. Ear canal without erythema. Tympanic membrane pearly live without effusion or bulging. Nasal canal clear with normal turbinates. Moist oropharynx without tonsillar exudates. Non-erythematous pharynx. Uvula midline. No drooling. No trismus. Neck: No cervical midline tenderness. Full range of motion. No meningismus. No cervical lymphadenopathy. No JVD. Resp: Clear to auscultation bilaterally. No wheezing, rhonchi, rales, or crackles. No accessory muscle use. No retractions. Cardio: Regular rate and rhythm. No murmurs, rubs or gallops. Abd: Soft, non tender, non distended. Normal bowel sounds. No palpable masses. No rebound tenderness. No guarding. Negative McBurney's Point. Negative Greenwood's Sign. Skin: Normal skin turgor. No petechiae or rashes Back: No midline tenderness. No CVA tenderness. Ext: No cyanosis, or edema. Distal pulses intact bilaterally. Neur: Awake and alert. Normal gait. Normal coordination. Cranial Nerves II- VII intact. Normal finger to nose. Muscle strength 5/5. Sensation intact. Psych: Normal Mood and Affect Results 24 hrs Laboratory Tests Test 03/31/17 18:42 03/31/17 19:36 White Blood Count 9.810^3/ul Red Blood Count 4.2310^6/ul Hemoglobin 12.5g/dl Hematocrit 38.7% Mean Corpuscular Volume 91.5fl Mean Corpuscular Hemoglobin 29.6pg Mean Corpuscular Hemoglobin Concent 32.3g/dl Red Cell Distribution Width 13.2% Platelet Count 97856^3/UL Mean Platelet Volume 9.4fl Neutrophils % 56.8% Lymphocytes % 35.5% Monocytes % 5.4% Eosinophils % 1.4% Basophils % 0.6% Nucleated Red Blood Cells % 0.0/100WBC Neutrophils # 5.610^3/ul Lymphocytes # 3.510^3/ul Monocytes # 0.510^3/ul Eosinophils # 0.110^3/ul Basophils # 0.110^3/ul Nucleated Red Blood Cells # 0.010^3/ul Prothrombin Time 12.3Sec Prothrombin Time Ratio 1.0 INR International Normalized Ratio 0.91 Activated Partial Thromboplast Time 26.8Sec Sodium Level 149mmol/L Potassium Level 4.3mmol/L Chloride Level 110mmol/L Carbon Dioxide Level 26mmol/L Anion Gap 17 Blood Urea Nitrogen 15mg/dl Creatinine 0.87mg/dl Glucose Level 121mg/dl Calcium Level 10.2mg/dl Troponin I < 0.012ng/ml Urine Color STRAW Urine Clarity CLEAR Urine pH 6.0 Urine Specific Gilman 1.004 Urine Ketones NEGATIVEmg/dL Urine Nitrite NEGATIVEmg/dL Urine Bilirubin NEGATIVEmg/dL Urine Urobilinogen NEGATIVEmg/dL Urine Leukocyte Esterase 1+Hernandez/ul Urine Microscopic RBC 3/HPF Urine Microscopic WBC 4/HPF Urine Bacteria FEW/HPF Urine Hemoglobin NEGATIVEmg/dL Urine Glucose NEGATIVEmg/dL Urine Total Protein NEGATIVEmg/dl Current Medications Medications (Trade) Dose Ordered Sig/Christine Route PRN Reason Start Time Stop Time Status Last Admin Dose Admin Aspirin (Aspirin) 325 mg ONCE STAT PO 03/31/17 18:12 03/31/17 18:15 DC 03/31/17 18:46 Lorazepam 0.5 mg 0.5 mg ONCE ONCE PO 03/31/17 18:30 03/31/17 18:31 DC 03/31/17 18:46 Sodium Chloride (NS) 1,000 ml @ 1,000 mls/hr Q1H ONCE IV 03/31/17 18:30 03/31/17 19:29 DC 03/31/17 18:46 Procedures/MDM This is a 51-year-old female patient with a past medical history of hypertension , diabetes type 2, migraines presents to the ED complaining of left arm numbness and tingling that started this morning at 8 AM. Patient is afebrile and nontoxic-appearing. Patient has normal vital signs. Patient was further worked up with CBC, BMP, UA, PT, PTT, EKG, chest x-ray, CT of the brain without contrast. Patient's pain and symptoms have improved after treatment with Ativan , aspirin 325 mg. Patient reports she no longer feels left arm numbness and tingling, heaviness, and pain after receiving Ativan. CBC: No leukocytosis. No e/o of systemic infection. No e/o anemia. CMP: No e/o severe acidosis, alkalosis, renal failure, diabetic ketoacidosis, liver disease Lipase within normal limits. Urine: No leukocyte esterase, no nitrites, no hematuria. EKG reviewed and interpreted by Dr. Hooper Rate/Rhythm: [76 bpm, Normal Sinus Rhythm] No ectopy, no ST elevations, normal axis. QRS, ST, T-waves: [No changes consistent w/ acute ischemia] Impression: [No evidence of ischemia or arrhythmia] Patient could likely have a stress reaction however patient was strictly instructed to follow up with PCP tomorrow for further evaluation and treatment. Low suspicion for acute myocardial infarction, pneumothorax, pneumonia, cardiac tamponade, Udrsb-Uzmypxznt-Urtlx Syndrome, Brugada Syndrome, pulmonary embolism , AAA, aortic dissection, thoracic aortic dissection, endocarditis, pericarditis , cocaine-related ischemia, Boerhaave's syndrome, cardiac dysrhythmias, meningitis, intracranial bleed, seizure, stroke, TIA or other emergent conditions. Low suspicion for subarachnoid hemorrhage, meningitis, TIA, stroke , seizures, subdural hematoma, epidural hematoma, or other emergent conditions. Low suspicion for ectopic , ovarian torsion, gastritis, GERD, peptic ulcer disease, cholecystitis, choledocholithiasis, cholangitis, pancreatitis, appendicitis, bowel obstruction, ileus, volvulus, nephrolithiasis, pyelonephritis, hepatitis, perforated viscus, diverticulitis, strangulated/ incarcerated hernia, DKA, acute abdomen, mesenteric ischemia or other emergent conditions. Discussed with my supervising physician, Dr. Hooper who agreed with the management and discharge plan. Discharge medications: Aspirin Follow up with primary care physician tomorrow. Instructed patient to return to the ED sooner for any worsening symptoms. Patient's questions were answered. Patient understood and agreed with discharge plan. Patient discharged stable. Departure Diagnosis: Primary Impression: Numbness and tingling in left hand Condition: Stable Patient Instructions: Paraesthesias Referrals: [facility] YOU HAVE RECEIVED A MEDICAL SCREENING EXAM AND THE RESULTS INDICATE THAT YOU DO NOT HAVE A CONDITION THAT REQUIRES URGENT TREATMENT IN THE EMERGENCY DEPARTMENT. FURTHER EVALUATION AND TREATMENT OF YOUR CONDITION CAN WAIT UNTIL YOU ARE SEEN IN YOUR DOCTORS OFFICE WITHIN THE NEXT 1-2 DAYS. IT IS YOUR RESPONSIBILITY TO MAKE AN APPOINTMENT FOR FOLOW-UP CARE. IF YOU HAVE A PRIMARY DOCTOR --you should call your primary doctor and schedule an appointment IF YOU DO NOT HAVE A PRIMARY DOCTOR YOU CAN CALL OUR PHYSICIAN REFERRAL HOTLINE AT IF YOU CAN NOT AFFORD TO SEE A PHYSICIAN YOU CAN CHOSE FROM THE FOLLOWING [facility] [address] [facility]. [facility] [address] [facility]. [facility] [address] [facility] [address] [facility] [address] [facility]. [facility] [address] [facility]. [facility] YOU HAVE RECEIVED A MEDICAL SCREENING EXAM AND THE RESULTS INDICATE THAT YOU DO NOT HAVE A CONDITION THAT REQUIRES URGENT TREATMENT IN THE EMERGENCY DEPARTMENT. FURTHER EVALUATION AND TREATMENT OF YOUR CONDITION CAN WAIT UNTIL YOU ARE SEEN IN YOUR DOCTORS OFFICE WITHIN THE NEXT 1-2 DAYS. IT IS YOUR RESPONSIBILITY TO MAKE AN APPOINTMENT FOR FOLOW-UP CARE. IF YOU HAVE A PRIMARY DOCTOR --you should call your primary doctor and schedule and appointment IF YOU DO NOT HAVE A PRIMARY DOCTOR YOU CAN CALL OUR PHYSICIAN REFERRAL HOTLINE AT . IF YOU CAN NOT AFFORD TO SEE A PHYSICIAN YOU CAN CHOSE FROM THE FOLLOWING [facility]: [facility] [address] [place] [address] [facility] [address] [place] [address] [facility] [address] [place] [address] [facility] Additional Instructions: FOLLOW UP WITH YOUR PRIMARY CARE PHYSICIAN TOMORROW.Return to this facility if you are not improving as expected - worsening numbness and tingling of left hand , blurred vision, slurred speech, one-sided weakness, etc. RYAN DESIR PA-C Apr 01, 2017 00:08 RYAN DESIR PA-C Apr 01, 2017 00:08
--- NOTE | 2017-04-01 00:08 | ERD ---
ER Documentation Chief Complaint Chief Complaint left arm tingling since 814 this morning HPI 51-year-old female patient with a past medical history of hypertension, diabetes type 2, migraines, tachycardia presents to the ED complaining of a constant left arm heaviness, arm tightness and arm pain that started this morning at 8am when she was upset. Reports that she was driving in [place] and her father was trying to get out of the car and she felt like this may have caused her symptoms. She states that she called her primary care physician, Dr. Hanks who sent her here for further evaluation and treatment. Reports that she feels numbness and tingling of her left upper extremity from her hand to her elbow. Denies any chest pain, shortness of breath, nausea, vomiting, diarrhea, wheezing , fever, chills, seizures, weakness, slurred speech. ROS All systems reviewed and are negative except as per history of present illness. Medications Home Meds Active Scripts Aspirin* (Aspirin* EC) 81 Mg Tablet., 162 MG PO DAILY, #30 TAB Prov:RYAN DESIR PA-C 03/31/17 Metformin* (Glucophage*) 500 Mg Tab, 500 MG PO WITH BREAKFAST DINNE, #60 TAB Prov:COLLEEN COLON ASSOCIATE TRAINER 07/23/16 Topiramate* (Topiramate*) 25 Mg Cap.sprink, 50 MG PO DAILY for 30 Days, CAP Prov:COLLEEN COLON ASSOCIATE TRAINER 07/23/16 Docusate Sodium* (Colace*) 100 Mg Capsule, 100 MG PO DAILY Y for CONSTIPATION, # 30 CAP Prov:GRIFFIN DANIELS 07/22/16 Hydrocodone/Acetaminophen ([place] 5-325 Tablet) 1 Each Tablet, 1 TAB PO Q6H Y for PAIN, #20 TAB Prov:GRIFFIN DANIELS 07/22/16 Reported Medications Metoprolol Tartrate* (Lopressor*) 50 Mg Tab, 50 MG PO BID, #60 TAB 07/22/16 Allergies Allergies: Coded Allergies: Rizatriptan Benzoate (Verified Allergy, Mild, increased heart rate and numbiing of hand, 07/22/16) erythromycin base (Verified Allergy, Mild, increased heart rate and numbing of hand, 07/22/16) PMhx/Soc History of Surgery: Yes Anesthesia Reaction: No Hx Neurological Disorder: Yes (HEADACHES/MIGRAINE) Hx Respiratory Disorders: No Hx Cardiac Disorders: Yes (HTN) Hx Psychiatric Problems: No Hx Miscellaneous Medical Probl: No Hx Alcohol Use: No Hx Substance Use: No Hx Tobacco Use: No Smoking Status: Never smoker Physical Exam Vitals Vital Signs Date Time Temp Pulse Resp B/P Pulse Ox O2 Delivery O2 Flow Rate FiO2 03/31/17 16:18 97.6 87 16 126/81 100 Physical Exam Const: [id number], well-nourished. In no acute distress. Head: Atraumatic, normocephalic Eyes: Normal Conjunctiva without injection. No purulent discharge. PERRLA. EOMI ENT: Normal external ear. Ear canal without erythema. Tympanic membrane pearly live without effusion or bulging. Nasal canal clear with normal turbinates. Moist oropharynx without tonsillar exudates. Non-erythematous pharynx. Uvula midline. No drooling. No trismus. Neck: No cervical midline tenderness. Full range of motion. No meningismus. No cervical lymphadenopathy. No JVD. Resp: Clear to auscultation bilaterally. No wheezing, rhonchi, rales, or crackles. No accessory muscle use. No retractions. Cardio: Regular rate and rhythm. No murmurs, rubs or gallops. Abd: Soft, non tender, non distended. Normal bowel sounds. No palpable masses. No rebound tenderness. No guarding. Negative McBurney's Point. Negative Greenwood's Sign. Skin: Normal skin turgor. No petechiae or rashes Back: No midline tenderness. No CVA tenderness. Ext: No cyanosis, or edema. Distal pulses intact bilaterally. Neur: Awake and alert. Normal gait. Normal coordination. Cranial Nerves II- VII intact. Normal finger to nose. Muscle strength 5/5. Sensation intact. Psych: Normal Mood and Affect Results 24 hrs Laboratory Tests Test 03/31/17 18:42 03/31/17 19:36 White Blood Count 9.810^3/ul Red Blood Count 4.2310^6/ul Hemoglobin 12.5g/dl Hematocrit 38.7% Mean Corpuscular Volume 91.5fl Mean Corpuscular Hemoglobin 29.6pg Mean Corpuscular Hemoglobin Concent 32.3g/dl Red Cell Distribution Width 13.2% Platelet Count 17836^3/UL Mean Platelet Volume 9.4fl Neutrophils % 56.8% Lymphocytes % 35.5% Monocytes % 5.4% Eosinophils % 1.4% Basophils % 0.6% Nucleated Red Blood Cells % 0.0/100WBC Neutrophils # 5.610^3/ul Lymphocytes # 3.510^3/ul Monocytes # 0.510^3/ul Eosinophils # 0.110^3/ul Basophils # 0.110^3/ul Nucleated Red Blood Cells # 0.010^3/ul Prothrombin Time 12.3Sec Prothrombin Time Ratio 1.0 INR International Normalized Ratio 0.91 Activated Partial Thromboplast Time 26.8Sec Sodium Level 149mmol/L Potassium Level 4.3mmol/L Chloride Level 110mmol/L Carbon Dioxide Level 26mmol/L Anion Gap 17 Blood Urea Nitrogen 15mg/dl Creatinine 0.87mg/dl Glucose Level 121mg/dl Calcium Level 10.2mg/dl Troponin I < 0.012ng/ml Urine Color STRAW Urine Clarity CLEAR Urine pH 6.0 Urine Specific [place] 1.004 Urine Ketones NEGATIVEmg/dL Urine Nitrite NEGATIVEmg/dL Urine Bilirubin NEGATIVEmg/dL Urine Urobilinogen NEGATIVEmg/dL Urine Leukocyte Esterase 1+Hernandez/ul Urine Microscopic RBC 3/HPF Urine Microscopic WBC 4/HPF Urine Bacteria FEW/HPF Urine Hemoglobin NEGATIVEmg/dL Urine Glucose NEGATIVEmg/dL Urine Total Protein NEGATIVEmg/dl Current Medications Medications (Trade) Dose Ordered Sig/Christine Route PRN Reason Start Time Stop Time Status Last Admin Dose Admin Aspirin (Aspirin) 325 mg ONCE STAT PO 03/31/17 18:12 03/31/17 18:15 DC 03/31/17 18:46 Lorazepam 0.5 mg 0.5 mg ONCE ONCE PO 03/31/17 18:30 03/31/17 18:31 DC 03/31/17 18:46 Sodium Chloride (NS) 1,000 ml @ 1,000 mls/hr Q1H ONCE IV 03/31/17 18:30 03/31/17 19:29 DC 03/31/17 18:46 Procedures/MDM This is a 51-year-old female patient with a past medical history of hypertension , diabetes type 2, migraines presents to the ED complaining of left arm numbness and tingling that started this morning at 8 AM. Patient is afebrile and nontoxic-appearing. Patient has normal vital signs. Patient was further worked up with CBC, BMP, UA, PT, PTT, EKG, chest x-ray, CT of the brain without contrast. Patient's pain and symptoms have improved after treatment with Ativan , aspirin 325 mg. Patient reports she no longer feels left arm numbness and tingling, heaviness, and pain after receiving Ativan. CBC: No leukocytosis. No e/o of systemic infection. No e/o anemia. CMP: No e/o severe acidosis, alkalosis, renal failure, diabetic ketoacidosis, liver disease Lipase within normal limits. Urine: No leukocyte esterase, no nitrites, no hematuria. EKG reviewed and interpreted by Dr. Hooper Rate/Rhythm: [76 bpm, Normal Sinus Rhythm] No ectopy, no ST elevations, normal axis. QRS, ST, T-waves: [No changes consistent w/ acute ischemia] Impression: [No evidence of ischemia or arrhythmia] Patient could likely have a stress reaction however patient was strictly instructed to follow up with PCP tomorrow for further evaluation and treatment. Low suspicion for acute myocardial infarction, pneumothorax, pneumonia, cardiac tamponade, Rmzoc-Mjwjplgih-Tzmog Syndrome, Brugada Syndrome, pulmonary embolism , AAA, aortic dissection, thoracic aortic dissection, endocarditis, pericarditis , cocaine-related ischemia, Boerhaave's syndrome, cardiac dysrhythmias, meningitis, intracranial bleed, seizure, stroke, TIA or other emergent conditions. Low suspicion for subarachnoid hemorrhage, meningitis, TIA, stroke , seizures, subdural hematoma, epidural hematoma, or other emergent conditions. Low suspicion for ectopic , ovarian torsion, gastritis, GERD, peptic ulcer disease, cholecystitis, choledocholithiasis, cholangitis, pancreatitis, appendicitis, bowel obstruction, ileus, volvulus, nephrolithiasis, pyelonephritis, hepatitis, perforated viscus, diverticulitis, strangulated/ incarcerated hernia, DKA, acute abdomen, mesenteric ischemia or other emergent conditions. Discussed with my supervising physician, Dr. Hooper who agreed with the management and discharge plan. Discharge medications: Aspirin Follow up with primary care physician tomorrow. Instructed patient to return to the ED sooner for any worsening symptoms. Patient's questions were answered. Patient understood and agreed with discharge plan. Patient discharged stable. Departure Diagnosis: Primary Impression: Numbness and tingling in left hand Condition: Stable Patient Instructions: Paraesthesias Referrals: [facility] YOU HAVE RECEIVED A MEDICAL SCREENING EXAM AND THE RESULTS INDICATE THAT YOU DO NOT HAVE A CONDITION THAT REQUIRES URGENT TREATMENT IN THE EMERGENCY DEPARTMENT. FURTHER EVALUATION AND TREATMENT OF YOUR CONDITION CAN WAIT UNTIL YOU ARE SEEN IN YOUR DOCTORS OFFICE WITHIN THE NEXT 1-2 DAYS. IT IS YOUR RESPONSIBILITY TO MAKE AN APPOINTMENT FOR FOLOW-UP CARE. IF YOU HAVE A PRIMARY DOCTOR --you should call your primary doctor and schedule an appointment IF YOU DO NOT HAVE A PRIMARY DOCTOR YOU CAN CALL OUR PHYSICIAN REFERRAL HOTLINE AT IF YOU CAN NOT AFFORD TO SEE A PHYSICIAN YOU CAN CHOSE FROM THE FOLLOWING [facility] [address] [facility]. [facility] [address] [facility]. [facility] [address] [facility] [facility] [facility] [address] [facility]. [facility] [address] [facility]. [facility] [address] [facility]. [facility] YOU HAVE RECEIVED A MEDICAL SCREENING EXAM AND THE RESULTS INDICATE THAT YOU DO NOT HAVE A CONDITION THAT REQUIRES URGENT TREATMENT IN THE EMERGENCY DEPARTMENT. FURTHER EVALUATION AND TREATMENT OF YOUR CONDITION CAN WAIT UNTIL YOU ARE SEEN IN YOUR DOCTORS OFFICE WITHIN THE NEXT 1-2 DAYS. IT IS YOUR RESPONSIBILITY TO MAKE AN APPOINTMENT FOR FOLOW-UP CARE. IF YOU HAVE A PRIMARY DOCTOR --you should call your primary doctor and schedule and appointment IF YOU DO NOT HAVE A PRIMARY DOCTOR YOU CAN CALL OUR PHYSICIAN REFERRAL HOTLINE AT . IF YOU CAN NOT AFFORD TO SEE A PHYSICIAN YOU CAN CHOSE FROM THE FOLLOWING [facility]: [facility] [address] [place] [address] [facility] [address] [place] [address] [facility] + [facility] [address] [place] [address] [facility] URGENT CARE/SPECIALTIES Additional Instructions: FOLLOW UP WITH YOUR PRIMARY CARE PHYSICIAN TOMORROW.Return to this facility if you are not improving as expected - worsening numbness and tingling of left hand , blurred vision, slurred speech, one-sided weakness, etc. RYAN DESIR PA-C Apr 01, 2017 00:08 RYAN DESIR PA-C Apr 01, 2017 00:08
--- NOTE | 2017-04-01 00:08 | ERD ---
ER Documentation Chief Complaint Chief Complaint left arm tingling since 814 this morning HPI 51-year-old female patient with a past medical history of hypertension, diabetes type 2, migraines, tachycardia presents to the ED complaining of a constant left arm heaviness, arm tightness and arm pain that started this morning at 8am when she was upset. Reports that she was driving in [place] and her father was trying to get out of the car and she felt like this may have caused her symptoms. She states that she called her primary care physician, Dr. Hanks who sent her here for further evaluation and treatment. Reports that she feels numbness and tingling of her left upper extremity from her hand to her elbow. Denies any chest pain, shortness of breath, nausea, vomiting, diarrhea, wheezing , fever, chills, seizures, weakness, slurred speech. ROS All systems reviewed and are negative except as per history of present illness. Medications Home Meds Active Scripts Aspirin* (Aspirin* EC) 81 Mg Tablet., 162 MG PO DAILY, #30 TAB Prov:RYAN DESIR PA-C 03/31/17 Metformin* (Glucophage*) 500 Mg Tab, 500 MG PO WITH BREAKFAST DINNE, #60 TAB Prov:COLLEEN COLON MINIBUS DRIVER 07/23/16 Topiramate* (Topiramate*) 25 Mg Cap.sprink, 50 MG PO DAILY for 30 Days, CAP Prov:COLLEEN COLON MINIBUS DRIVER 07/23/16 Docusate Sodium* (Colace*) 100 Mg Capsule, 100 MG PO DAILY Y for CONSTIPATION, # 30 CAP Prov:GRIFFIN DANIELS 07/22/16 Hydrocodone/Acetaminophen ([place] 5-325 Tablet) 1 Each Tablet, 1 TAB PO Q6H Y for PAIN, #20 TAB Prov:GRIFFIN DANIELS 07/22/16 Reported Medications Metoprolol Tartrate* (Lopressor*) 50 Mg Tab, 50 MG PO BID, #60 TAB 07/22/16 Allergies Allergies: Coded Allergies: Rizatriptan Benzoate (Verified Allergy, Mild, increased heart rate and numbiing of hand, 07/22/16) erythromycin base (Verified Allergy, Mild, increased heart rate and numbing of hand, 07/22/16) PMhx/Soc History of Surgery: Yes Anesthesia Reaction: No Hx Neurological Disorder: Yes (HEADACHES/MIGRAINE) Hx Respiratory Disorders: No Hx Cardiac Disorders: Yes (HTN) Hx Psychiatric Problems: No Hx Miscellaneous Medical Probl: No Hx Alcohol Use: No Hx Substance Use: No Hx Tobacco Use: No Smoking Status: Never smoker Physical Exam Vitals Vital Signs Date Time Temp Pulse Resp B/P Pulse Ox O2 Delivery O2 Flow Rate FiO2 03/31/17 16:18 97.6 87 16 126/81 100 Physical Exam Const: [id number]-vvk-aokdtuori, well-nourished. In no acute distress. Head: Atraumatic, normocephalic Eyes: Normal Conjunctiva without injection. No purulent discharge. PERRLA. EOMI ENT: Normal external ear. Ear canal without erythema. Tympanic membrane pearly live without effusion or bulging. Nasal canal clear with normal turbinates. Moist oropharynx without tonsillar exudates. Non-erythematous pharynx. Uvula midline. No drooling. No trismus. Neck: No cervical midline tenderness. Full range of motion. No meningismus. No cervical lymphadenopathy. No JVD. Resp: Clear to auscultation bilaterally. No wheezing, rhonchi, rales, or crackles. No accessory muscle use. No retractions. Cardio: Regular rate and rhythm. No murmurs, rubs or gallops. Abd: Soft, non tender, non distended. Normal bowel sounds. No palpable masses. No rebound tenderness. No guarding. Negative McBurney's Point. Negative Greenwood's Sign. Skin: Normal skin turgor. No petechiae or rashes Back: No midline tenderness. No CVA tenderness. Ext: No cyanosis, or edema. Distal pulses intact bilaterally. Neur: Awake and alert. Normal gait. Normal coordination. Cranial Nerves II- VII intact. Normal finger to nose. Muscle strength 5/5. Sensation intact. Psych: Normal Mood and Affect Results 24 hrs Laboratory Tests Test 03/31/17 18:42 03/31/17 19:36 White Blood Count 9.810^3/ul Red Blood Count 4.2310^6/ul Hemoglobin 12.5g/dl Hematocrit 38.7% Mean Corpuscular Volume 91.5fl Mean Corpuscular Hemoglobin 29.6pg Mean Corpuscular Hemoglobin Concent 32.3g/dl Red Cell Distribution Width 13.2% Platelet Count 34929^3/UL Mean Platelet Volume 9.4fl Neutrophils % 56.8% Lymphocytes % 35.5% Monocytes % 5.4% Eosinophils % 1.4% Basophils % 0.6% Nucleated Red Blood Cells % 0.0/100WBC Neutrophils # 5.610^3/ul Lymphocytes # 3.510^3/ul Monocytes # 0.510^3/ul Eosinophils # 0.110^3/ul Basophils # 0.110^3/ul Nucleated Red Blood Cells # 0.010^3/ul Prothrombin Time 12.3Sec Prothrombin Time Ratio 1.0 INR International Normalized Ratio 0.91 Activated Partial Thromboplast Time 26.8Sec Sodium Level 149mmol/L Potassium Level 4.3mmol/L Chloride Level 110mmol/L Carbon Dioxide Level 26mmol/L Anion Gap 17 Blood Urea Nitrogen 15mg/dl Creatinine 0.87mg/dl Glucose Level 121mg/dl Calcium Level 10.2mg/dl Troponin I < 0.012ng/ml Urine Color STRAW Urine Clarity CLEAR Urine pH 6.0 Urine Specific [place] 1.004 Urine Ketones NEGATIVEmg/dL Urine Nitrite NEGATIVEmg/dL Urine Bilirubin NEGATIVEmg/dL Urine Urobilinogen NEGATIVEmg/dL Urine Leukocyte Esterase 1+Hernandez/ul Urine Microscopic RBC 3/HPF Urine Microscopic WBC 4/HPF Urine Bacteria FEW/HPF Urine Hemoglobin NEGATIVEmg/dL Urine Glucose NEGATIVEmg/dL Urine Total Protein NEGATIVEmg/dl Current Medications Medications (Trade) Dose Ordered Sig/Christine Route PRN Reason Start Time Stop Time Status Last Admin Dose Admin Aspirin (Aspirin) 325 mg ONCE STAT PO 03/31/17 18:12 03/31/17 18:15 DC 03/31/17 18:46 Lorazepam 0.5 mg 0.5 mg ONCE ONCE PO 03/31/17 18:30 03/31/17 18:31 DC 03/31/17 18:46 Sodium Chloride (NS) 1,000 ml @ 1,000 mls/hr Q1H ONCE IV 03/31/17 18:30 03/31/17 19:29 DC 03/31/17 18:46 Procedures/MDM This is a 51-year-old female patient with a past medical history of hypertension , diabetes type 2, migraines presents to the ED complaining of left arm numbness and tingling that started this morning at 8 AM. Patient is afebrile and nontoxic-appearing. Patient has normal vital signs. Patient was further worked up with CBC, BMP, UA, PT, PTT, EKG, chest x-ray, CT of the brain without contrast. Patient's pain and symptoms have improved after treatment with Ativan , aspirin 325 mg. Patient reports she no longer feels left arm numbness and tingling, heaviness, and pain after receiving Ativan. CBC: No leukocytosis. No e/o of systemic infection. No e/o anemia. CMP: No e/o severe acidosis, alkalosis, renal failure, diabetic ketoacidosis, liver disease Lipase within normal limits. Urine: No leukocyte esterase, no nitrites, no hematuria. EKG reviewed and interpreted by Dr. Hooper Rate/Rhythm: [76 bpm, Normal Sinus Rhythm] No ectopy, no ST elevations, normal axis. QRS, ST, T-waves: [No changes consistent w/ acute ischemia] Impression: [No evidence of ischemia or arrhythmia] Patient could likely have a stress reaction however patient was strictly instructed to follow up with PCP tomorrow for further evaluation and treatment. Low suspicion for acute myocardial infarction, pneumothorax, pneumonia, cardiac tamponade, Tzyqk-Ylhajhbeq-Udrqx Syndrome, Brugada Syndrome, pulmonary embolism , AAA, aortic dissection, thoracic aortic dissection, endocarditis, pericarditis , cocaine-related ischemia, Boerhaave's syndrome, cardiac dysrhythmias, meningitis, intracranial bleed, seizure, stroke, TIA or other emergent conditions. Low suspicion for subarachnoid hemorrhage, meningitis, TIA, stroke , seizures, subdural hematoma, epidural hematoma, or other emergent conditions. Low suspicion for ectopic , ovarian torsion, gastritis, GERD, peptic ulcer disease, cholecystitis, choledocholithiasis, cholangitis, pancreatitis, appendicitis, bowel obstruction, ileus, volvulus, nephrolithiasis, pyelonephritis, hepatitis, perforated viscus, diverticulitis, strangulated/ incarcerated hernia, DKA, acute abdomen, mesenteric ischemia or other emergent conditions. Discussed with my supervising physician, Dr. Hooper who agreed with the management and discharge plan. Discharge medications: Aspirin Follow up with primary care physician tomorrow. Instructed patient to return to the ED sooner for any worsening symptoms. Patient's questions were answered. Patient understood and agreed with discharge plan. Patient discharged stable. Departure Diagnosis: Primary Impression: Numbness and tingling in left hand Condition: Stable Patient Instructions: Paraesthesias Referrals: [facility] YOU HAVE RECEIVED A MEDICAL SCREENING EXAM AND THE RESULTS INDICATE THAT YOU DO NOT HAVE A CONDITION THAT REQUIRES URGENT TREATMENT IN THE EMERGENCY DEPARTMENT. FURTHER EVALUATION AND TREATMENT OF YOUR CONDITION CAN WAIT UNTIL YOU ARE SEEN IN YOUR DOCTORS OFFICE WITHIN THE NEXT 1-2 DAYS. IT IS YOUR RESPONSIBILITY TO MAKE AN APPOINTMENT FOR FOLOW-UP CARE. IF YOU HAVE A PRIMARY DOCTOR --you should call your primary doctor and schedule an appointment IF YOU DO NOT HAVE A PRIMARY DOCTOR YOU CAN CALL OUR PHYSICIAN REFERRAL HOTLINE AT IF YOU CAN NOT AFFORD TO SEE A PHYSICIAN YOU CAN CHOSE FROM THE FOLLOWING [facility] [address] [facility]. [facility] [address] [facility]. [facility] [address] [facility] [address] [facility] [address] [facility] [facility] [address] [facility] [facility] YOU HAVE RECEIVED A MEDICAL SCREENING EXAM AND THE RESULTS INDICATE THAT YOU DO NOT HAVE A CONDITION THAT REQUIRES URGENT TREATMENT IN THE EMERGENCY DEPARTMENT. FURTHER EVALUATION AND TREATMENT OF YOUR CONDITION CAN WAIT UNTIL YOU ARE SEEN IN YOUR DOCTORS OFFICE WITHIN THE NEXT 1-2 DAYS. IT IS YOUR RESPONSIBILITY TO MAKE AN APPOINTMENT FOR FOLOW-UP CARE. IF YOU HAVE A PRIMARY DOCTOR --you should call your primary doctor and schedule and appointment IF YOU DO NOT HAVE A PRIMARY DOCTOR YOU CAN CALL OUR PHYSICIAN REFERRAL HOTLINE AT . IF YOU CAN NOT AFFORD TO SEE A PHYSICIAN YOU CAN CHOSE FROM THE FOLLOWING [facility]: [facility] [address] [place] [address] [facility] [address] [place] [address] [facility] + [facility] [address] [place] [address] [facility] URGENT CARE/SPECIALTIES Additional Instructions: FOLLOW UP WITH YOUR PRIMARY CARE PHYSICIAN TOMORROW.Return to this facility if you are not improving as expected - worsening numbness and tingling of left hand , blurred vision, slurred speech, one-sided weakness, etc. RYAN DESIR PA-C Apr 01, 2017 00:08 RYAN DESIR PA-C Apr 01, 2017 00:08
== END 2017-03-31 21:15 | disposition home or self-care (01) ==
LOC: FTE 16:10
DX: R20.0 Anesthesia of skin (principal); I10 Essential (primary) hypertension; E11.9 Type 2 diabetes mellitus without complications; R07.9 Chest pain, unspecified; Z79.82 Long term (current) use of aspirin; Z79.84 Long term (current) use of oral hypoglycemic drugs
CPT/HCPCS: 36415; 70450; 71010; 80048; 81001; 84484; 85025; 85610; 85730; 93005; 99285; J7030

== ENCOUNTER → 2018-12-10 | Outpatient (CLI) | payer BC ==
--- NOTE | 2018-11-27 17:14 | CONS ---
DATE OF ADMISSION: 11/27/2018 DATE OF CONSULTATION: PREOPERATIVE GASTROENTERELOGY CONSULTATION Dear Dr. Botello: I thank you very much for this kind referral. HISTORY OF PRESENT ILLNESS: Ms. Corry Peace is a 53-year-old female patient who has been referred to me for further evaluation of rectal bleeding. She has also noticed a change in the bowel habit. No past history of colon neoplasm. Her appetite has been good and she is not losing any weight. The patient also complains of chronic heartburn with burning in the throat. No upper abdominal pain, na usea or vomiting. Not on nonsteroidal anti-inflammatory agents. No history of gallstones or liver d isease. No history of hypertension. She has history of tachycardia and she is on metoprolol. She h as diabetes. No lung problem or kidney disease. She is status post hysterectomy. SOCIAL HISTORY: Nonsmoker. No alcohol abuse. FAMILY HISTORY: No family history of gastrointestinal tract neoplasm. ALLERGIES: ALLERGIC TO ERYTHROMYCIN. MEDICATIONS 1. Metoprolol. 2. Metformin. PHYSICAL EXAMINATION: VITAL SIGNS: She is 5 feet 2 inches tall and weighs 158 pounds. HEART: Normal heart sounds. LUNGS: Clear. ABDOMEN: Soft, no masses. Normal bowel sounds. NEUROLOGIC: Normal neurological exam. IMPRESSION: 1. Rectal bleeding. 2. Change in the bowel habit. 3. Gastroesophageal reflux disease, not responding to therapy. 4. History of tachycardia and she is on metoprolol. 5. Diabetes mellitus. 6. Status post hysterectomy and sections. 7. ALLERGY TO ERYTHROMYCIN. PLAN: 1. Colonoscopy and upper endoscopy for further evaluation. 2. The patient has got a short, thick neck, and she needs monitored anesthesia care for the procedur e. The procedures and possible complications are well explained to the patient. She understands and con sents to the procedures. I thank you once again. With warmest personal regards, Dictated By: DERICK DENG/DIANA Conf#: [id number] DID#: [id number]
[~2018-12-10] MED LIST changes: +ASPI-817 PO; +HYDR-4011 PO; -HYDR-906 PO; +METF-849 PO; -METF500T4 PO
== END | disposition home or self-care (01) ==
LOC: LAB 13:09
PROVIDERS: ATTEND Obstetrics & Gynecology
DX: R10.2 Pelvic and perineal pain (principal); N39.0 Urinary tract infection, site not specified; E55.9 Vitamin D deficiency, unspecified; Z23 Encounter for immunization
CPT/HCPCS: 80053; 80061; 81001; 82652; 83036; 84443; 85025; 86704; 86709; 86803; 87086; 87340

== ENCOUNTER → 2018-12-23 | Outpatient (CLI) | payer BC ==
[~2018-12-23] MED LIST changes: +IOHEXOL 300MG/ML 150 ML BTL ONE; +SOD CHLORIDE 0.9% 100 ML ONE
== END | disposition home or self-care (01) ==
LOC: C/S 09:56
PROVIDERS: ATTEND Obstetrics & Gynecology
DX: N30.91 Cystitis, unspecified with hematuria (principal)
CPT/HCPCS: 74178; Q9967